=== PATIENT | female | born 1980 | race Caucasian/White ===

== ENCOUNTER 2019-03-31 23:58 | Emergency (ER) | payer MEDICAID ==
[~2019-03-31] VITALS: Ht 152.4 cm; Wt 100.0 kg
[2019-04-01] MEDS ORDERED: CARB200T PO (00:05)
[2019-04-01] MEDS ORDERED: CLON1TAB11 PO (00:05)
[2019-04-01] MEDS ORDERED: DIVA500T2 PO (00:05)
--- NOTE | 2019-04-01 00:22 | NUR ---
BREAK RN: PT TO RM AND XRAYS COMPLETED. PT C/O L ANKLE PAIN AFTER TWISTING IT WHILE GOING DOWN THE STAIRS. CMS INTACT. NO S/S OF ACUTE DISTRESS. CALL LIGHT IN REACH.
[2019-04-01] MEDS ORDERED: IBUPROFEN 800 MG TABLET ONE (01:07)
--- NOTE | 2019-04-01 01:17 | NUR ---
re-evaluation done. patient medicated for pain. crutches provided. airsplint applied.
[2019-04-01 01:20] VITALS: BP 135/81
[2019-04-01] MEDS ORDERED: IBUPROFEN 800 MG TABLET PO ONE (01:30)
== END 2019-04-01 01:23 | disposition home or self-care (01) ==
LOC: ED 04-01 00:40
DX: S93.492A Sprain of other ligament of left ankle, initial encounter (principal); X50.1XXA Overexertion from prolonged static or awkward postures, initial encounter; Y93.89 Activity, other specified; Y92.69 Other specified industrial and construction area as the place of occurrence of the external cause; Y99.8 Other external cause status
CPT/HCPCS: 99283